=== PATIENT | male | born 1945 | race Caucasian/White ===

== ENCOUNTER 2018-08-15 08:10 | Emergency (ER) | payer MEDICARE ==
[~2018-08-15] VITALS: Ht 170.2 cm; Wt 72.4 kg
[2018-08-15 09:15] VITALS: BP 136/79
== END 2018-08-15 09:17 | disposition home or self-care (01) ==
LOC: ED 09:06
DX: K64.4 Residual hemorrhoidal skin tags (principal)
CPT/HCPCS: 99283